=== PATIENT | female | born 1960 | race Hispanic/Latino ===

== ENCOUNTER 2023-06-10 12:12 | Emergency (ER) | payer OTHER ==
[~2023-06-10] VITALS: Ht 162.6 cm; Wt 104.1 kg
[2023-06-10] MEDS ORDERED: KETOROLAC TROMETHAMINE 30 MG/ML VIAL IV ONE (14:31)
[2023-06-10] MEDS ORDERED: SODIUM CHLORIDE 0.9% 1000ML 1,000 ML IV SCH (14:45)
[2023-06-10] MEDS ORDERED: KETOROLAC TROMETHAMINE 30 MG/ML VIAL ONE (15:00)
[2023-06-10] MEDS ORDERED: SODIUM CHLORIDE 0.9% 1000ML 1,000 ML ONE (15:00)
[2023-06-10] MEDS ORDERED: CYCLOBENZAPRINE5 MG PO (15:57)
[2023-06-10] MEDS ORDERED: METHOCARBAMOL500 MG PO (16:00)
[2023-06-10] MEDS ORDERED: ULTRAM 50MG50 MG PO (16:00)
[2023-06-10] MEDS ORDERED: CLONIDINE HCL 0.2 MG TAB ONE (16:11)
[2023-06-10] MEDS ORDERED: CLONIDINE HCL 0.2 MG TAB PO ONE (16:15)
[2023-06-10] MEDS ORDERED: LORAZEPAM 0.5 MG TAB ONE (16:21)
[2023-06-10] MEDS ORDERED: FEROSUL325 MG PO (16:26)
[2023-06-10] MEDS ORDERED: QUETIAPINE FUM100 MG PO (16:26)
[2023-06-10] MEDS ORDERED: HYDROCHLOROTH12.5 MG PO (16:26)
[2023-06-10] MEDS ORDERED: ZESTRIL10 MG PO (16:26)
[2023-06-10] MEDS ORDERED: ATORVASTATIN CA20 MG PO (16:26)
[2023-06-10] MEDS ORDERED: HYDROXYZIN10 MG/5 ML PO (16:26)
[2023-06-10] MEDS ORDERED: OMEGA 3 1,0001 EACH PO (16:26)
[2023-06-10] MEDS ORDERED: LORAZEPAM 1 MG TAB PO ONE (16:30)
[2023-06-10 17:47] VITALS: O2SAT 98
[2023-06-10] MEDS ORDERED: LISINOPRIL20 MG PO (17:50)
[2023-06-10] MEDS ORDERED: CLONIDINE HCL0.1 MG PO (17:52)
== END 2023-06-10 18:26 | disposition home or self-care (01) ==
LOC: FSED 12:19
DX: R51.9 Headache, unspecified (principal); I10 Essential (primary) hypertension; M54.2 Cervicalgia; F41.9 Anxiety disorder, unspecified; F31.9 Bipolar disorder, unspecified
CPT/HCPCS: 70450; 71046; 80053; 81003; 82553; 84484; 85025; 93005; 96374; 99284; J1885; J7030